=== PATIENT | male | born 1975 | race Caucasian/White ===

== ENCOUNTER 2022-01-06 20:33 | Emergency (ER) | payer SELFPAY ==
[~2022-01-06] VITALS: Ht 188 cm; Wt 104.5 kg
[2022-01-06 20:38] VITALS: TEMP 97
[2022-01-06 20:53] LABS: HEMATOCRIT 50.1 % (42.0-52.0); MEAN CELL VOLUME 88 fl (80.0-100.0); MEAN CORPUSCULAR HEMOGLOBIN 32 pg (27-31); MEAN CORPUSCULAR HGB CONC 36 g/dl (33.0-37.0); MEAN PLATELET VOLUME 9.5 fl (7.4-10.4); PLATELET COUNT 347 K/mm3 (130-400); RED BLOOD COUNT 5.67 M/mm3 (4.20-5.60); REDCELL DISTRIBUTION WIDTH-CV 13.1 % (11.5-14.5)
[2022-01-06 20:59] LABS: INR 1.1 (0.8-3.0); PROTHROMBIN TIME 12.9 SECONDS (9.7-12.8)
[2022-01-06 21:01] LABS: PARTIAL THROMBOPLASTIN TIME 27.5 SECONDS (26.0-37.0)
[2022-01-06 21:15] LABS: ALANINE AMINOTRANSFERASE 69 U/L (0-55); ALBUMIN 5.1 gm/dL (3.5-5.0); ALKALINE PHOSPHATASE 94 U/L (40-150); ANION GAP 39 mmol/L (7-16); AST,SGOT 65 U/L (5-34); BILIRUBIN,TOTAL 1.3 mg/dL (0.2-1.2); BLOOD UREA NITROGEN 15 mg/dL (9-21); CALCIUM 9.2 mg/dL (8.4-10.2); CHLORIDE 92 mmol/L (98-107); CREATININE, serum 1.66 mg/dL (0.72-1.25); GLUCOSE 207 mg/dL (70-99); MAGNESIUM 2.3 mg/dL (1.6-2.6); POTASSIUM 3.3 mmol/L (3.5-4.5); SODIUM 137 mmol/L (136-145); TOTAL PROTEIN 8.6 gm/dL (6.2-8.1)
[2022-01-06 21:17] LABS: CARBON DIOXIDE 6 mmol/L (22-29)
[2022-01-06 21:18] LABS: BAND 5 % (0-10); LYMPHOCYTE 3 % (20.0-51.0); NEUTROPHILS 88 % (42.0-75.2)
[2022-01-06 21:19] LABS: PLATELET ESTIMATE NORMAL (NORMAL)
[2022-01-06 21:23] LABS: TROPONIN-I 0.024 ng/mL (0.00-0.033)
[2022-01-06 21:34] LABS: ALCOHOL(ethanol),MEDICAL < 10 mg/dL (0-10); CREATINE KINASE 1084 U/L (30-200)
[2022-01-06 21:50] LABS: ARTERIAL BLD GAS O2 SATURATION 97.9 % (92-100); ARTERIAL BLD GAS TCO2 CT 10.2; ARTERIAL BLOOD GAS BASE EXCESS -14.3 (-2-2); ARTERIAL BLOOD GAS HCO3 9.5 meq/L (22-26); ARTERIAL BLOOD GAS PO2 114.9 mmHg (80-100); ARTERIAL BLOOD GAS pH 7.29 (7.35-7.45)
[2022-01-06 21:51] LABS: ARTERIAL BLOOD GAS PCO2 20.4 mmHg (35-45)
[2022-01-06 23:00] VITALS: BP 150/81; PULSE 130
== END 2022-01-06 23:15 | disposition short-term general hospital (02) ==
LOC: COL.ER 20:33
PROVIDERS: Emergency Medicine
DX: I47.2 Ventricular tachycardia (principal); K20.90 Esophagitis, unspecified without bleeding; E87.6 Hypokalemia; E87.2 Acidosis; F17.290 Nicotine dependence, other tobacco product, uncomplicated; Z20.822 Contact with and (suspected) exposure to COVID-19
CPT/HCPCS: J0282; J2543; J2550; J3480; J7030; J7050; J7060; Q9967